=== PATIENT | female | born 1970 | race Asian ===

== ENCOUNTER → 2017-07-25 | Outpatient (CLI) | payer BC ==
[~2017-07-25] MED LIST: FEXO-1 PO; FEXO180T87 PO; FEXO1TAB39 PO; FLUT16SP19 NS; KETO5DRO71 OP; LACT1CAP6 PO; LACT70CA PO; LOR5/325 PO; METO-253 PO; METO50TA19 PO; MONT10TA4 PO; OND4 PO; PANT40TA65 PO; TRI40I IART; TRI40I IM; TRI40I INTRA-ART
--- NOTE | 2017-07-30 09:31 | RADIOLOGY IMAGING REPORT ---
[place] [facility] [place] NAME: JAMES LAKE : [id number] MR: [id number] V: [id number] EXAM DATE: ORDERING PHYSICIAN: KAREN FOLEY TECHNOLOGIST: Charltote Lucas PROCEDURE:BILATERAL DIGITAL SCREENING MAMMOGRAM WITH CAD AND 3D BREAST TOMOSYNTHESIS. COMPARISON:04/26/14 and priors to . INDICATIONS:ROUTINE SCREENING FINDINGS: Breast parenchyma is extremely dense. There are no mammographic findings concerning for malignancy. No significant interval change. DIAGNOSTIC CATEGORY 1--NEGATIVE. RECOMMENDATIONS: ROUTINE MAMMOGRAM AND CLINICAL EVALUATION. IMPRESSION: Bi-RADS 1: Negative. RECOMMENDATION: Followup screening mammogram in one year. Dictated by: Hiren Gasca on 07/28/2017 at 9:55 Transcribed by: FRANCISCO on 07/28/2017 at 22:56 Approved by: Negin Hernandez M.D. on 07/30/2017 at 8:54 [facility]
== END ==
LOC: MAMO 04:31
PROVIDERS: ATTEND Nurse Practitioner Family
DX: Z12.31 Encounter for screening mammogram for malignant neoplasm of breast (principal)
CPT/HCPCS: 77063; 77067

== ENCOUNTER 2018-09-19 14:06 | Emergency (ER) | payer BC ==
[2018-09-19] MEDS ORDERED: METO-253 PO (14:10)
--- NOTE | 2018-09-19 14:10 | ER Report ---
History and Physical Time Seen By MD: 14:10 HPI/ROS CHIEF COMPLAINT: Palpitations, chest discomfort, right-sided weakness HISTORY OF PRESENT ILLNESS: 48-year-old female patient presents to emergency room with complaint of palpitations, chest discomfort, right-sided weakness. Patient states this started while she was at work today. She does work as a nurse at the [employer]. She states that she did not felt well yesterday, and was home. She states that today she felt fine when she got up. However while work she began feeling worse. Patient states that she does have a history of tachycardia. She states she is on 50 mg of metoprolol for that. She states that she has recently cut that back from twice a day to once a day. Patient states that she has not had any fevers, chills, nausea, vomiting or diarrhea. Patient states she noticed some right-sided numbness. REVIEW OF SYSTEMS: Respiratory: No cough, no dyspnea. Cardiovascular: As noted above Gastrointestinal: No vomiting, no abdominal pain. Musculoskeletal: No back pain. Allergies: Coded Allergies: No Known Drug Allergies (Unverified , 09/19/18) Home Meds Reported Medications Metoprolol Tartrate (METOPROLOL TARTRATE) 50 Mg Tab, 1 TAB PO QHS, TAB 09/19/18 Discontinued Scripts Metoprolol Tartrate (METOPROLOL TARTRATE) 50 Mg Tab, 1 TAB PO BID, #180 TAB 3 Refills Prov:KAREN FOLEY APRN-C 06/05/18 Lactobac No.41/Bifidobact No.7 (Probiotic-10 3 Billion Cell Cp) 70 Mg (3 Billion Cell) Capsule, 1 CAP PO DAILY, #90 CPDR 4 Refills Prov:KAREN FOLEY APRNP-C 06/16/17 Past Medical/Surgical History Patient has a past medical history of tachycardia. Patient has a surgical history of D&C. Reviewed Nurses Notes: Yes Hx Smoking: No Smoking Status: Never Smoker Hx Substance Use Disorder: No Constitutional Vital Sign - Last 24 Hours 09/19/18 09/19/18 09/19/18 09/19/18 14:07 14:30 15:00 15:30 Temp 99.1 Pulse 114 86 84 84 Resp 20 10 11 B/P (MAP) 150/95 123/72 (89) 127/76 (93) 111/79 (90) Pulse Ox 94 95 95 O2 Delivery Room Air 09/19/18 09/19/18 09/19/18 16:00 16:00 16:30 Pulse 80 80 77 Resp 9 9 15 B/P (MAP) 122/74 (90) 122/74 (90) 114/69 (84) Pulse Ox 94 94 95 Physical Exam General Appearance: The patient is alert, has no immediate need for airway protection and no current signs of toxicity. Respiratory: Chest is non tender, lungs are clear to auscultation. Cardiac: regular rate and rhythm Gastrointestinal: Abdomen is soft and non tender, no masses, bowel sounds normal. Musculoskeletal: Neck: Neck is supple and non tender. Extremities have full range of motion and are non tender. Skin: No rashes or lesions. DIFFERENTIAL DIAGNOSIS: After history and physical exam differential diagnosis was considered for chest pain including but not limited to myocardial ischemia, pericarditis pulmonary embolus, chest wall pain, pleural inflammation and pulmonary infectious causes. Medical Decision Making Data Points Result Diagram: 09/19/18 1413 09/19/18 1413 Laboratory Hematology Test 09/19/18 14:13 09/19/18 16:57 Red Blood Count 5.69 M/uL (4.17-5.56) Mean Corpuscular Volume 83.2 fL (80.0-96.0) Mean Corpuscular Hemoglobin 27.6 pg (26.0-33.0) Mean Corpuscular Hemoglobin Concent 33.2 g/dL (32.0-36.0) Red Cell Distribution Width 13.7 % (11.5-14.5) Mean Platelet Volume 7.9 fL (7.2-11.1) Neutrophils (%) (Auto) 57.9 % (39.4-72.5) Lymphocytes (%) (Auto) 31.9 % (17.6-49.6) Monocytes (%) (Auto) 7.3 % (4.1-12.4) Eosinophils (%) (Auto) 1.8 % (0.4-6.7) Basophils (%) (Auto) 1.1 % (0.3-1.4) Nucleated RBC Relative Count (auto) 0.0 /100WBC Neutrophils # (Auto) 5.1 K/uL (2.0-7.4) Lymphocytes # (Auto) 2.8 K/uL (1.3-3.6) Monocytes # (Auto) 0.6 K/uL (0.3-1.0) Eosinophils # (Auto) 0.2 K/uL (0.0-0.5) Basophils # (Auto) 0.1 K/uL (0.0-0.1) Nucleated RBC Absolute Count (auto) 0.00 K/uL Peripheral Blood Smear No Y/N Sodium Level 137 mmol/L (137-145) Potassium Level 3.4 mmol/L (3.5-5.0) Chloride Level 101 mmol/L (98-107) Carbon Dioxide Level 25 mmol/L (22-31) Blood Urea Nitrogen 12 mg/dl (7-18) Creatinine 0.70 mg/dl (0.52-1.04) Glomerular Filtration Rate Calc > 60.0 Random Glucose 130 mg/dl (75-110) Calcium Level 9.3 mg/dl (8.4-10.2) Total Bilirubin 1.2 mg/dl (0.2-1.3) Aspartate Amino Transf (AST/SGOT) 24 U/L (0-35) Alanine Aminotransferase (ALT/SGPT) 19 U/L (0-56) Alkaline Phosphatase 58 U/L (0-126) Total Protein 8.3 g/dl (6.3-8.2) Albumin 5.0 g/dl (3.5-5.0) Human Chorionic Gonadotropin, Qual Negative (NEGATIVE) Troponin I < 0.012 ng/ml Chemistry Test 09/19/18 14:13 09/19/18 16:57 White Blood Count 8.8 k/uL (4.5-11.0) Red Blood Count 5.69 M/uL (4.17-5.56) Hemoglobin 15.7 g/dL (12.0-16.0) Hematocrit 47.3 % (34.0-47.0) Mean Corpuscular Volume 83.2 fL (80.0-96.0) Mean Corpuscular Hemoglobin 27.6 pg (26.0-33.0) Mean Corpuscular Hemoglobin Concent 33.2 g/dL (32.0-36.0) Red Cell Distribution Width 13.7 % (11.5-14.5) Platelet Count 311 K/uL (150-450) Mean Platelet Volume 7.9 fL (7.2-11.1) Neutrophils (%) (Auto) 57.9 % (39.4-72.5) Lymphocytes (%) (Auto) 31.9 % (17.6-49.6) Monocytes (%) (Auto) 7.3 % (4.1-12.4) Eosinophils (%) (Auto) 1.8 % (0.4-6.7) Basophils (%) (Auto) 1.1 % (0.3-1.4) Nucleated RBC Relative Count (auto) 0.0 /100WBC Neutrophils # (Auto) 5.1 K/uL (2.0-7.4) Lymphocytes # (Auto) 2.8 K/uL (1.3-3.6) Monocytes # (Auto) 0.6 K/uL (0.3-1.0) Eosinophils # (Auto) 0.2 K/uL (0.0-0.5) Basophils # (Auto) 0.1 K/uL (0.0-0.1) Nucleated RBC Absolute Count (auto) 0.00 K/uL Peripheral Blood Smear No Y/N Glomerular Filtration Rate Calc > 60.0 Calcium Level 9.3 mg/dl (8.4-10.2) Total Bilirubin 1.2 mg/dl (0.2-1.3) Aspartate Amino Transf (AST/SGOT) 24 U/L (0-35) Alanine Aminotransferase (ALT/SGPT) 19 U/L (0-56) Alkaline Phosphatase 58 U/L (0-126) Total Protein 8.3 g/dl (6.3-8.2) Albumin 5.0 g/dl (3.5-5.0) Human Chorionic Gonadotropin, Qual Negative (NEGATIVE) Troponin I < 0.012 ng/ml EKG/Imaging EKG Interpretation 12 lead EKG: Rhythm: Sinus tachycardia with ventricular rate of 108 bpm [place]: normal QRS: normal ST segments: normal Imaging EXAMINATION: PA and Lateral Chest 09/19/2018 2:19 PM HISTORY: Chest Pain COMPARISON: None FINDINGS: Cardiomediastinal contours: Normal Lungs and pleura: Normal Bones/soft tissues: No acute finding. Pectus deformity of sternum. Subtle dextroscoliotic thoracolumbar curvature. IMPRESSION: No acute cardiopulmonary abnormality. Report Dictated By: Hiren Gasca MD at 09/19/2018 3:20 PM Report E-Signed By: Hiren Gasca MD at 09/19/2018 3:21 PM EXAMINATION: Head CT without intravenous contrast HISTORY: Left-sided numbness. COMPARISON: MRI of the brain from 04/02/2013. TECHNIQUE: Contiguous axial images were obtained from the skull base to the vertex without intravenous contrast. Sagittal and coronal reformatted images are also submitted. One of the following dose optimization techniques was utilized in the performance of this exam: Automated exposure control; adjustment of the mA and/or kV according to the patient's size; or use of an iterative reconstruction technique. Specific details can be referenced in the facility's radiology CT exam operational policy. FINDINGS: Brain and intracranial structures: Ventricles, sulci, and cisterns are normal in size. Quezada-white matter differentiation is maintained. No midline shift, acute hemorrhage, mass, or evidence of acute infarct. Calvarium / scalp: Negative. Skull base / visualized face: Mild degenerative changes of the temporomandibular joints. Visualized sinuses / orbits: Negative. IMPRESSION: No CT evidence of acute intracranial pathology. Report Dictated By: Terence Brown MD at 09/19/2018 3:16 PM Report E-Signed By: Terence Brown MD at 09/19/2018 3:23 PM ED Course/Re-evaluation ED Course Patient was admitted an exam room, history and physical were obtained. Differential diagnoses were considered. On examination lungs are clear, heart was regular although tachycardia, abdomen soft nontender. A CBC, CMP, troponin, EKG, chest x-ray, CT scan of the head was done as patient was complaining of numbness. Patient had equal strength to all extremities. CT scan of the head was negative, chest x-ray showed no acute cardiopulmonary processes, lab results were negative. With patient having chest pain and shortness of breath starting just prior to arrival in the emergency room I felt that it would be barr to go ahead and repeat the troponin. Repeat troponin was also negative. I discussed the findings with the patient and her . We will go ahead and discharge patient home at this time. Patient states she feels significantly better is ready go home. With patient arrived emergency room she had a heart rate of 117. After all the labs and x-rays been done and discussed with patient her it was in the 70s. I did recommend that she take half a dose of the metoprolol in the morning half the dose at night that we she has full coverage in reverse or tachycardia. Patient verbalized understanding and agreement with plan. We'll have her follow-up with her primary care provider next week. Decision to Disposition Date: Sep 19, 2018 Decision to Disposition Time: 17:30 Depart Departure Latest Vital Signs Vital Signs Date Time Temp Pulse Resp B/P (MAP) Pulse Ox O2 Delivery O2 Flow Rate FiO2 09/19/18 16:30 77 15 114/69 (84) 95 09/19/18 14:07 99.1 Room Air Impression: Primary Impression: Chest pain Additional Impression: Anxiety Condition: Improved Disposition: HOME OR SELF-CARE Referrals: AKREN FOLEY APRNP-C (PCP) Patient Instructions: Chest Pain (ED) Additional Instructions: Increase fluid intake. Get plenty of rest. Follow up with your primary care provider in the next week. continue with your normal medications. Consider taking 1/2 tab of the metoprolol BID as opposed to 1 tab daily. Problem Qualifiers Primary Impression: Chest pain Chest pain type: other chest pain Qualified Codes: R07.89 - Other chest pain ETHAN QUICK Sep 19, 2018 14:10
--- NOTE | 2018-09-19 14:27 | EKG ---
FACILITY: [facility] - [place] PATIENT NAME: JAMES LAKE : [id number] MR: [id number]: [id number] EXAM DATE: ORDERING PHYSICIAN: ETHAN QUICK TECHNOLOGIST: Test Reason : Blood Pressure : / mmHG Vent. Rate : 108 BPM Atrial Rate : 108 BPM P-R Int : 126 ms QRS Dur : 082 ms QT Int : 302 ms P-R-T Axes : 079 023 018 degrees QTc Int : 404 ms Sinus tachycardia Otherwise normal ECG No previous ECGs available Confirmed by JAEL LOPEZ ([id number]) on 09/19/2018 6:15:21 PM Referred By: Confirmed By:JAEL LOPEZ
[2018-09-19 14:35] LABS: PLATELET COUNT, AUTOMATED 311 K/uL (150-450)
--- NOTE | 2018-09-19 15:25 | RADIOLOGY IMAGING REPORT ---
FACILITY: [facility] PATIENT NAME: Yeyo Mariscal : 1970 MR: [id number] V: [id number] EXAM DATE: ORDERING PHYSICIAN: ETHAN QUICK TECHNOLOGIST: Location: [facility] - [place] Patient: Yeyo Mariscal : 1970 Visit/Account:[id number] Date of Sevice: 09/19/2018 EXAMINATION: PA and Lateral Chest 09/19/2018 2:19 PM HISTORY: Chest Pain COMPARISON: None FINDINGS: Cardiomediastinal contours: Normal Lungs and pleura: Normal Bones/soft tissues: No acute finding. Pectus deformity of sternum. Subtle dextroscoliotic thoracolumb ar curvature. IMPRESSION: No acute cardiopulmonary abnormality. Report Dictated By: Hiren Gasca MD at 09/19/2018 3:20 PM Report E-Signed By: Hiren Gasca MD at 09/19/2018 3:21 PM WSN:[id number]
--- NOTE | 2018-09-19 15:26 | RADIOLOGY IMAGING REPORT ---
FACILITY: [facility] PATIENT NAME: Yeyo Mariscal : 1970 MR: [id number] V: [id number] EXAM DATE: ORDERING PHYSICIAN: ETHAN QUICK TECHNOLOGIST: Location: [facility] Patient: Yeyo Mariscal : 1970 Visit/Account:[id number] Date of Sevice: 09/19/2018 EXAMINATION: Head CT without intravenous contrast HISTORY: Left-sided numbness. COMPARISON: MRI of the brain from 04/02/2013. TECHNIQUE: Contiguous axial images were obtained from the skull base to the vertex without intraven ous contrast. Sagittal and coronal reformatted images are also submitted. One of the following dose optimization techniques was utilized in the performance of this exam: Autom ated exposure control; adjustment of the mA and/or kV according to the patient's size; or use of an i terative reconstruction technique. Specific details can be referenced in the facility's radiology C T exam operational policy. FINDINGS: Brain and intracranial structures: Ventricles, sulci, and cisterns are normal in size. Quezada-white ma tter differentiation is maintained. No midline shift, acute hemorrhage, mass, or evidence of acute infarct. Calvarium / scalp: Negative. Skull base / visualized face: Mild degenerative changes of the temporomandibular joints. Visualized sinuses / orbits: Negative. IMPRESSION: No CT evidence of acute intracranial pathology. Report Dictated By: Terence Brown MD at 09/19/2018 3:16 PM Report E-Signed By: Terence Brown MD at 09/19/2018 3:23 PM WSN:[id number]
[2018-09-19 16:30] VITALS: BP 114/69
== END 2018-09-19 18:11 | disposition home or self-care (01) ==
LOC: ER 14:22
DX: R07.9 Chest pain, unspecified (principal); F41.9 Anxiety disorder, unspecified; R20.0 Anesthesia of skin
CPT/HCPCS: 36415; 70450; 71046; 82040; 82247; 82310; 82374; 82435; 82565; 82947; 84075; 84132; 84155; 84295; 84450; 84460; 84484; 84520; 84703; 85025; 93005; 99284

== ENCOUNTER → 2018-09-19 | Outpatient (CLI) | payer BC | LOC: AMB 13:44 | PROVIDERS: ATTEND Nurse Practitioner | DX: R07.9 Chest pain, unspecified (principal) | CPT/HCPCS: A0425; A0427 ==